=== PATIENT | male | born 1945 | race Caucasian/White ===

== ENCOUNTER 2022-06-24 06:40 | Day surgery (SDC) | payer MEDICARE, OTHER ==
[2022-06-22 10:54] VITALS: BMI 24.4
[~2022-06-24 06:40] MED LIST: LACTATED RINGERS 1,000 ML IV SCH; LIDOCAINE 1% (10MG/ML) FOR IV START INTRADERMA PRN
[2022-06-24] MEDS ORDERED: ONDANSETRON 4 MG/2 ML VIAL IVP PRN (07:00)
[2022-06-24 07:40] LABS: Glucose,Whole Blood 144 mg/dL (70-110)
[2022-06-24 07:41] VITALS: RESP 16; TEMP 97.8
[2022-06-24] MEDS ORDERED: PROPOFOL 10 MG/ML 20 ML VIAL IV ONE (07:55)
--- NOTE | 2022-06-24 08:12 | P.GSHP ---
History of Present Illness H&P Date: 06/24/22 Chief Complaint: Iron deficient anemia This a 77-year-old male who presents today for colonoscopy. Patient's had complaints of anemia. Patient denies any obvious GI bleed. Past Medical History Past Medical History: Diabetes Mellitus, Hypertension Additional Past Medical History / Comment(s): Aortic aneurysm. History of Any Multi-Drug Resistant Organisms: None Reported Past Surgical History: Orthopedic Surgery Additional Past Surgical History / Comment(s): Bilateral knee surgery, colonoscopy. Past Anesthesia/Blood Transfusion Reactions: No Reported Reaction Past Psychological History: No Psychological Hx Reported Smoking Status: Former smoker Past Alcohol Use History: Rare Additional Past Alcohol Use History / Comment(s): Quit smoking in 1991. Past Drug Use History: None Reported - Past Family History Mother Family Medical History: No Reported History Medications and Allergies Home Medications Medication Instructions Recorded Confirmed Type Allergy Relief Otc 1 tab PO HS 06/22/22 06/24/22 History Aspirin [Adult Low Dose Aspirin EC] 81 mg PO DAILY 06/22/22 06/24/22 History Cholecalciferol [Vitamin D3 (25 50 mcg PO DAILY 06/22/22 06/24/22 History Mcg = 1000 Iu)] Glimepiride [Amaryl] 1 mg PO QAM 06/22/22 06/24/22 History Metoprolol Tartrate [Lopressor] 50 mg PO BID 06/22/22 06/24/22 History metFORMIN HCL [Glucophage] 500 mg PO BID 06/22/22 06/24/22 History Allergies Allergy/AdvReac Type Severity Reaction Status Date / Time No Known Allergies Allergy Verified 06/24/22 07:26 Surgical - Exam Vital Signs Temp Pulse Resp BP Pulse Ox 97.8 F 57 L 16 118/67 96 06/24/22 07:30 06/24/22 07:30 06/24/22 07:30 06/24/22 07:30 06/24/22 07:30 - General well developed, well nourished, no distress - Eyes PERRL - ENT normal pinna - Neck no masses - Respiratory normal expansion - Cardiovascular Rhythm: regular - Abdomen Abdomen: soft, non tender Results - Labs Abnormal Lab Results - Last 24 Hours (Table) 06/24/22 Range/Units 07:37 POC Glucose (mg/dL) 144 H (70-110) mg/dL Assessment and Plan Assessment: Anemia. Performed colonoscopy.
--- NOTE | 2022-06-24 08:16 | P.OP ---
Date of Procedure: 06/24/22 Preoperative Diagnosis: Iron deficient anemia Postoperative Diagnosis: Mild diverticulosis Procedure(s) Performed: Colonoscopy Anesthesia: MAC Surgeon: Loki Zurita Pathology: none sent Condition: stable Disposition: PACU Description of Procedure: The patient's placed on the endoscopy table in the lateral position. He received IV sedation. Digital rectal exam performed which revealed no abnormalities. Flexible colonoscope was then placed patient anus and passed throughout the entire colon. The ileocecal valve was visualized. The cecum, ascending and transverse colon appeared normal. In the descending; was mild diverticular changes. Scope summer back the rectum and this appeared normal. Scope was withdrawn for patient. There was no evidence of any GI bleed. The patient's anemia is persistent he should have an EGD performed
[2022-06-24 08:38] VITALS: BP 113/65; PULSE 57
== END 2022-06-24 08:53 | disposition home or self-care (01) ==
LOC: ORWHC2ENDO 06:40
PROVIDERS: ATTEND Surgery
DX: K57.30 Diverticulosis of large intestine without perforation or abscess without bleeding (principal); D50.9 Iron deficiency anemia, unspecified; E11.9 Type 2 diabetes mellitus without complications; I10 Essential (primary) hypertension; I71.9 Aortic aneurysm of unspecified site, without rupture; Z98.890 Other specified postprocedural states; Z87.891 Personal history of nicotine dependence; F10.99 Alcohol use, unspecified with unspecified alcohol-induced disorder; Z79.82 Long term (current) use of aspirin; Z79.84 Long term (current) use of oral hypoglycemic drugs; Z79.899 Other long term (current) drug therapy
CPT/HCPCS: J2704; G0121; 45378